=== PATIENT | male | born 2005 | race Two or more races ===

== ENCOUNTER 2023-01-08 20:25 | Emergency (ER) | payer MEDICAID, OTHER ==
[~2023-01-08] VITALS: Ht 182.9 cm; Wt 65.3 kg
[2023-01-08 20:25] VITALS: BP 131/70
[2023-01-08] MEDS ORDERED: DEXAMETHASONE SOD PHOSPHATE 10 MG/ML VIAL MC ONE (21:30)
[2023-01-08] MEDS ORDERED: KETOROLAC TROMETHAMINE INJ 30 MG/ML VIAL IM ONE (21:30)
[2023-01-08] MEDS ORDERED: DEXAMETHASONE SOD PHOSPHATE 10 MG/ML VIAL ONE (21:41)
[2023-01-08] MEDS ORDERED: KETOROLAC TROMETHAMINE INJ 30 MG/ML VIAL ONE (21:41)
[2023-01-08] MEDS ORDERED: KETO10TA2 PO (22:34)
== END 2023-01-08 22:30 | disposition home or self-care (01) ==
LOC: ER 20:27
DX: J02.9 Acute pharyngitis, unspecified (principal)
CPT/HCPCS: 99283; 96372; J1100; J1885